=== PATIENT | male | born 1960 | race Caucasian/White ===

== ENCOUNTER 2017-08-31 02:21 | Inpatient (IN) | payer OTHER ==
[2017-08-31] MEDS ORDERED: ONDANSETRON 4 MG INJ IV (04:00)
[2017-08-31] MEDS ORDERED: NACL 0.9% 3 ML SYG IV (04:00)
[2017-08-31] MEDS: DOCUSATE SODIUM 100 MG CAP PO ×2 (04:00→15:24)
[2017-08-31] MEDS: HYDROmorphONE 0.5 MG/0.5 ML SYG IV (04:23)
[2017-08-31] MEDS: SOD CHLORIDE 0.9% 1,000 ML IV ×2 (04:26→14:16)
[2017-08-31 05:40] LABS: ADD MAN DIFF? NO
[2017-08-31 05:41] LABS: BASOPHILS % 0.3 % (0.0-2.0); EOSINOPHILS % 0.1 % (0.0-7.0); HEMOGLOBIN 11.9 g/dl (14.0-18.0); LYMPHOCYTES # 1.5 10^3/ul (0.8-2.9); LYMPHOCYTES % 16.1 % (15.0-51.0); MEAN CORPUSCULAR HEMOGLOBIN 32.3 pg (29.0-33.0); MEAN CORPUSCULAR VOLUME 95.1 fl (82.0-101.0); MONOCYTE # 0.7 10^3/ul (0.3-0.9); MONOCYTES % 7.6 % (0.0-11.0); NEUTROPHIL # 7.1 10^3/ul (1.6-7.5); NEUTROPHILS % 75.4 % (39.0-77.0); PLATELET COUNT 164 10^3/UL (140-415); RED BLOOD COUNT 3.68 10^6/ul (4.70-6.10); RED CELL DISTRIBUTION WIDTH 11.7 % (11.5-14.5)
[2017-08-31 05:41] LABS: WHITE BLOOD COUNT 9.4 10^3/ul (4.8-10.8)
[2017-08-31 06:13] LABS: ALANINE AMINOTRANSFERASE 30 IU/L (13-69); ALBUMIN 3.8 g/dl (3.3-4.9); ALBUMIN/GLOBULIN RATIO 1.15; ALKALINE PHOSPHATASE 71 IU/L (42-121); ANION GAP 14 (8-16); ASPARTATE AMINO TRANSFERASE 30 IU/L (15-46); BILIRUBIN,INDIRECT 0.6 mg/dl (0-1.1); BILIRUBIN,TOTAL 0.6 mg/dl (0.2-1.3); BLOOD UREA NITROGEN 23 mg/dl (7-20); CALCIUM 8.8 mg/dl (8.4-10.2); CARBON DIOXIDE 28 mmol/L (21-31); CHLORIDE 106 mmol/L (97-110); CREATININE 0.84 mg/dl (0.61-1.24); GLUCOSE 148 mg/dl (70-220); POTASSIUM 4.4 mmol/L (3.5-5.1); SODIUM 144 mmol/L (135-144); TOTAL PROTEIN 7.1 g/dl (6.1-8.1)
[2017-08-31 06:15] LABS: INR 1.01; PARTIAL THROMBOPLASTIN TIME 24.7 Sec (25.0-35.0); PROTIME 13.4 Sec (11.9-14.9)
[2017-08-31] MEDS: BISACODYL (EC) 5 MG TAB PO (08:48)
[2017-08-31] MEDS: HYDROmorphONE 1 MG/ML SYG IV ×3 (11:20→20:42)
[2017-08-31] MEDS: HYDROCODONE/APAP (5/325) TAB PO (22:17)
[2017-09-01] MEDS: HYDROmorphONE 1 MG/ML SYG IV ×5 (01:05→22:46)
[2017-09-01] MEDS: SOD CHLORIDE 0.9% 1,000 ML IV ×3 (01:08→19:43)
[2017-09-01] MEDS: DOCUSATE SODIUM 100 MG CAP PO ×2 (05:12→16:36)
[2017-09-01 07:24] LABS: ADD MAN DIFF? NO
[2017-09-01 07:30] LABS: WHITE BLOOD COUNT 7.9 10^3/ul (4.8-10.8)
[2017-09-01 07:30] LABS: BASOPHILS % 0.4 % (0.0-2.0); EOSINOPHILS # 0.1 10^3/ul (0.0-0.5); EOSINOPHILS % 0.8 % (0.0-7.0); HEMATOCRIT 28.7 % (42.0-52.0); HEMOGLOBIN 9.9 g/dl (14.0-18.0); LYMPHOCYTES # 1.8 10^3/ul (0.8-2.9); LYMPHOCYTES % 23.2 % (15.0-51.0); MEAN CORPUSCULAR HEMOGLOBIN 32.8 pg (29.0-33.0); MEAN CORPUSCULAR HGB CONC 34.5 g/dl (32.0-37.0); MEAN PLATELET VOLUME 9.7 fl (7.4-10.4); MONOCYTE # 0.7 10^3/ul (0.3-0.9); MONOCYTES % 9.3 % (0.0-11.0); NEUTROPHIL # 5.2 10^3/ul (1.6-7.5); NEUTROPHILS % 65.7 % (39.0-77.0); PLATELET COUNT 131 10^3/UL (140-415); RED BLOOD COUNT 3.02 10^6/ul (4.70-6.10); RED CELL DISTRIBUTION WIDTH 11.9 % (11.5-14.5)
[2017-09-01 07:50] LABS: ALANINE AMINOTRANSFERASE 25 IU/L (13-69); ALBUMIN 3.3 g/dl (3.3-4.9); ALBUMIN/GLOBULIN RATIO 1.06; ALKALINE PHOSPHATASE 62 IU/L (42-121); ANION GAP 8 (8-16); ASPARTATE AMINO TRANSFERASE 29 IU/L (15-46); BILIRUBIN,INDIRECT 0.6 mg/dl (0-1.1); BILIRUBIN,TOTAL 0.6 mg/dl (0.2-1.3); BLOOD UREA NITROGEN 17 mg/dl (7-20); CARBON DIOXIDE 28 mmol/L (21-31); CHLORIDE 109 mmol/L (97-110); CHOL/HDL RATIO 3.8 RATIO; CHOLESTEROL 124 mg/dl (100-200); CREATININE 0.73 mg/dl (0.61-1.24); GLUCOSE 117 mg/dl (70-220); HDL CHOLESTEROL 32 mg/dl (28-71); LDL CHOLESTEROL,CALCULATED 60 mg/dl; POTASSIUM 3.7 mmol/L (3.5-5.1); SODIUM 141 mmol/L (135-144); TOTAL PROTEIN 6.4 g/dl (6.1-8.1); TRIGLYCERIDES 160 mg/dl (0-149)
[2017-09-01 08:02] LABS: FREE THYROXINE INDEX (Calc) 2.34 ug/ml (0.65-3.89); T3 UPTAKE 32.5 % (23.5-40.5); T4 (THYROXINE) 7.2 ug/dl (5.5-11.0)
[2017-09-01] MEDS: BISACODYL (EC) 5 MG TAB PO (08:54)
[2017-09-01 09:14] LABS: HEMOGLOBIN A1C 5.6 % (0-5.9)
[2017-09-02] MEDS: HYDROmorphONE 1 MG/ML SYG IV ×6 (02:54→23:16)
[2017-09-02] MEDS: DOCUSATE SODIUM 100 MG CAP PO ×3 (04:00→21:07)
[2017-09-02] MEDS: SOD CHLORIDE 0.9% 1,000 ML IV ×2 (06:05→15:31)
[2017-09-02] MEDS ORDERED: GLYCOPYRROLATE 0.4 MG INJ (07:00)
[2017-09-02] MEDS ORDERED: NEOSTIGMINE 3 MG/3 ML SYRINGE (07:00)
[2017-09-02] MEDS ORDERED: MIDAZOLAM 1 MG/ML 2 ML INJ (07:50)
[2017-09-02] MEDS: BISACODYL (EC) 5 MG TAB PO (08:25)
[2017-09-02] MEDS ORDERED: PHENYLephrine (100 MCG/ML) 5ML SYG (11:30)
[2017-09-02] MEDS ORDERED: PHENYLephrine 10 MG INJ ×2 (11:55→13:42)
[2017-09-02] MEDS: POLYMYXIN/BACITRACIN 1L IRRIG (13:00)
[2017-09-02] MEDS ORDERED: PROPOFOL 0 ML (13:41)
[2017-09-02] MEDS ORDERED: CEFAZOLIN 1 GM INJ (13:41)
[2017-09-02] MEDS ORDERED: LIDOCAINE 2% (SDV) 5 ML INJ (13:41)
[2017-09-02] MEDS ORDERED: ROCURONIUM 50 MG INJ (13:41)
[2017-09-02] MEDS ORDERED: PROPOFOL 20 ML (13:41)
[2017-09-02] MEDS ORDERED: ONDANSETRON 4 MG INJ (13:42)
[2017-09-02] MEDS: ASPIRIN (EC) 325 MG TAB PO (14:00)
[2017-09-02] MEDS: HYDROmorphONE 1 MG/5 ML IV SYRINGE IV (14:22)
[2017-09-02] MEDS ORDERED: HYDROmorphONE 1 MG/5 ML IV SYRINGE IV (14:30)
[2017-09-02] MEDS ORDERED: ONDANSETRON 4 MG INJ IV (14:30)
[2017-09-02] MEDS ORDERED: DIPHENHYDRAMINE 50 MG INJ IV (14:30)
[2017-09-02] MEDS: MEPERIDINE 25 MG INJ IV ×2 (14:40→16:39)
[2017-09-02 14:43] LABS: HEMATOCRIT 23.9 % (42.0-52.0); HEMOGLOBIN 7.9 g/dl (14.0-18.0)
[2017-09-02] MEDS: FENTAnyl 50 MCG/ML VIAL IV (16:13)
[2017-09-02] MEDS: CEFAZOLIN 1 GM/50 ML (PMX) 50 ML IVPB ×2 (16:20→23:16)
[2017-09-02] MEDS: ASPIRIN 325 MG TAB PO (21:06)
[2017-09-03] MEDS: SOD CHLORIDE 0.9% 1,000 ML IV ×3 (01:31→15:22)
[2017-09-03] MEDS: HYDROmorphONE 1 MG/ML SYG IV ×4 (04:11→16:49)
[2017-09-03] MEDS: DOCUSATE SODIUM 100 MG CAP PO ×2 (04:16→16:49)
[2017-09-03] MEDS: CEFAZOLIN 1 GM/50 ML (PMX) 50 ML IVPB (07:00)
[2017-09-03] MEDS: BISACODYL (EC) 5 MG TAB PO (09:06)
[2017-09-03] MEDS: ASPIRIN 325 MG TAB PO ×2 (09:06→20:16)
[2017-09-03 17:05] LABS: HEMATOCRIT 14.9 % (42.0-52.0)
[2017-09-03 17:35] LABS: TROPONIN-I 0.076 ng/ml (0.000-0.120)
[2017-09-03] MEDS: ACETAMINOPHEN 325 MG TAB PO (21:38)
[2017-09-03] MEDS: AL HYDROX/MG HYDROX/SIMETH 30 ML CUP PO (22:43)
[2017-09-04] MEDS: FUROSEMIDE 40 MG INJ IV (00:22)
[2017-09-04] MEDS: DIPHENHYDRAMINE 50 MG INJ IV (01:15)
[2017-09-04] MEDS: DOCUSATE SODIUM 100 MG CAP PO ×2 (04:24→17:55)
[2017-09-04] MEDS: HYDROCODONE/APAP (5/325) TAB PO (04:31)
[2017-09-04 06:42] LABS: HEMATOCRIT 20.9 % (42.0-52.0)
[2017-09-04] MEDS: BISACODYL (EC) 5 MG TAB PO (08:21)
[2017-09-04] MEDS: ASPIRIN 325 MG TAB PO ×2 (08:21→20:50)
[2017-09-04] MEDS: HYDROmorphONE 1 MG/ML SYG IV ×4 (10:37→23:27)
[2017-09-04 15:15] LABS: HEMATOCRIT 19.7 % (42.0-52.0)
[2017-09-04 15:20] LABS: HEMOGLOBIN 6.5 g/dl (14.0-18.0)
[2017-09-04 22:47] LABS: IMMEDIATE SPIN CROSSMATCH 1 8
[2017-09-05 03:47] LABS: HEMATOCRIT 22.8 % (42.0-52.0); HEMOGLOBIN 7.6 g/dl (14.0-18.0)
[2017-09-05] MEDS: DOCUSATE SODIUM 100 MG CAP PO ×2 (04:46→16:00)
[2017-09-05] MEDS: HYDROmorphONE 1 MG/ML SYG IV ×4 (04:46→22:48)
[2017-09-05] MEDS: BISACODYL (EC) 5 MG TAB PO (08:16)
[2017-09-05] MEDS: ASPIRIN 325 MG TAB PO ×2 (08:16→21:35)
[2017-09-05 14:27] LABS: HEMATOCRIT 22.4 % (42.0-52.0); HEMOGLOBIN 7.5 g/dl (14.0-18.0)
[2017-09-05] MEDS: HYDROCODONE/APAP (5/325) TAB PO (21:34)
[2017-09-05] MEDS: TAMSULOSIN (SR) 0.4 MG CAP PO (21:34)
[2017-09-06] MEDS: LORAZEPAM 2 MG INJ IV (01:16)
[2017-09-06] MEDS: HYDROmorphONE 1 MG/ML SYG IV ×3 (03:45→21:34)
[2017-09-06] MEDS: DOCUSATE SODIUM 100 MG CAP PO ×2 (03:48→17:28)
[2017-09-06] MEDS: ASPIRIN 325 MG TAB PO ×2 (08:15→21:34)
[2017-09-06] MEDS: BISACODYL (EC) 5 MG TAB PO (08:15)
[2017-09-06 11:54] LABS: HEMATOCRIT 23.9 % (42.0-52.0)
[2017-09-06] MEDS: LEVOFLOXACIN 750 MG TABLET PO (12:57)
[2017-09-06] MEDS: HYDROCODONE/APAP (5/325) TAB PO (17:28)
[2017-09-06] MEDS: TAMSULOSIN (SR) 0.4 MG CAP PO (21:34)
[2017-09-07] MEDS: DOCUSATE SODIUM 100 MG CAP PO ×2 (03:04→16:00)
[2017-09-07] MEDS: HYDROCODONE/APAP (5/325) TAB PO ×3 (03:04→16:14)
[2017-09-07] MEDS: LEVOFLOXACIN 750 MG TABLET PO (05:57)
[2017-09-07] MEDS: BISACODYL (EC) 5 MG TAB PO (09:10)
[2017-09-07] MEDS: ASPIRIN 325 MG TAB PO (09:10)
[2017-09-07 13:32] LABS: HEMATOCRIT 25.3 % (42.0-52.0); HEMOGLOBIN 8.2 g/dl (14.0-18.0)
== END 2017-09-07 16:00 | DRG 481 ==
LOC: TEL 02:21
PROC: 0QS706Z Reposition Left Upper Femur with Intramedullary Internal Fixation Device, Open Approach (ICD-10-PCS; principal; 2017-09-02 07:30)
PROC: 0KNR0ZZ Release Left Upper Leg Muscle, Open Approach (ICD-10-PCS; 2017-09-02 07:30)
PROC: 0KNR0ZZ Release Left Upper Leg Muscle, Open Approach (ICD-10-PCS; 2017-09-02 07:30)
PROC: 0KNR0ZZ Release Left Upper Leg Muscle, Open Approach (ICD-10-PCS; 2017-09-02 07:30)
PROC: 30233N1 Transfusion of Nonautologous Red Blood Cells into Peripheral Vein, Percutaneous Approach (ICD-10-PCS; 2017-09-02 07:30)
DX: S72.22XA Displaced subtrochanteric fracture of left femur, initial encounter for closed fracture (principal); T79.A22A Traumatic compartment syndrome of left lower extremity, initial encounter; D62 Acute posthemorrhagic anemia; N50.89 Other specified disorders of the male genital organs; W11.XXXA Fall on and from ladder, initial encounter
CPT/HCPCS: 36430; 71045; 73510; 73530; 73550; 76870; 80053; 80061; 82306; 83036; 84436; 84443; 84479; 84484; 85014; 85018; 85025; 85610; 85730; 86850; 86900; 86901; 86920; 87086; 93005; 97110; 97116; 97163; 97530

== ENCOUNTER → 2017-10-01 | Outpatient (CLI) | payer OTHER | END | disposition home or self-care (01) | LOC: HKI 11:26 | DX: Z09 Encounter for follow-up examination after completed treatment for conditions other than malignant neoplasm (principal); S72.92XD Unspecified fracture of left femur, subsequent encounter for closed fracture with routine healing; X58.XXXD Exposure to other specified factors, subsequent encounter | CPT/HCPCS: 73552 ==

== ENCOUNTER → 2017-11-12 | Outpatient (CLI) | payer OTHER | END | disposition home or self-care (01) | LOC: HKI 10:18 | DX: Z47.89 Encounter for other orthopedic aftercare (principal); S72.142D Displaced intertrochanteric fracture of left femur, subsequent encounter for closed fracture with routine healing | CPT/HCPCS: 73552 ==